=== PATIENT | female | born 1990 | race Caucasian/White ===

== ENCOUNTER 2016-07-21 10:26 | Emergency (ER) | payer BC ==
[2016-07-21 10:48] VITALS: BP 126/52
--- NOTE | 2016-07-21 11:41 | UC ---
General HPI - HPI Summary HPI Summary: Achy, tired, feels feverish for a couple days. Worried about influenza -- is 24 wks and did not get flu vaccine. Partner has been sicker than her this week. No cough or nasal congestion. - History of Current Complaint Chief Complaint: UCRespiratory Stated Complaint: CONGESTION/ACHY Time Seen by Provider: 07/21/16 11:26 Hx Obtained From: Patient Onset/Duration: Gradual Onset, Lasting Days Timing: Constant Onset Severity: Mild Current Severity: Mild - Allergy/Home Medications Allergies/Adverse Reactions: Allergies Allergy/AdvReac Type Severity Reaction Status Date / Time No Known Allergies Allergy Verified 07/21/16 10:47 Home Medications: Home Medications Mv & Min W/ Methylfol [ + Complete Multi 0.267 & 373 mg] 1 dose PO DAILY 07/21/16 [History Confirmed 07/21/16] PMH/Surg Hx/FS Hx/Imm Hx Previously Healthy: Yes - Surgical History Surgical History: Yes Surgery Procedure, Year, and Place: [facility] - Family History Known Family History: Negative: Blood Disorder - Social History Lives: With Family Alcohol Use: None Substance Use Type: None Smoking Status (MU): Never Smoked Tobacco Review of Systems Constitutional: Chills, Fatigue Skin: Negative Eyes: Negative ENT: Negative Respiratory: Negative Cardiovascular: Negative Gastrointestinal: Negative Genitourinary: Negative Motor: Negative Neurovascular: Negative Musculoskeletal: Negative Neurological: Negative Psychological: Negative All Other Systems Reviewed And Are Negative: Yes Physical Exam Triage Information Reviewed: Yes Appearance: Well-Appearing, No Pain Distress, Well-Nourished Vital Signs: Initial Vital Signs Temp 98.3 F 07/21/16 10:43 Pulse 85 07/21/16 10:43 Resp 16 07/21/16 10:43 BP 126/52 07/21/16 10:43 Pulse Ox 100 07/21/16 10:43 Vital Signs Reviewed: Yes Eye Exam: Normal Eyes: Positive: Conjunctiva Clear ENT Exam: Normal ENT: Positive: Normal ENT inspection, Hearing grossly normal, Pharynx normal, TMs normal. Negative: Tonsillar swelling, Tonsillar exudate Dental Exam: Normal Neck exam: Normal Neck: Positive: Supple, Nontender, No Lymphadenopathy Respiratory Exam: Normal Respiratory: Positive: Chest non-tender, Lungs clear, Normal breath sounds, No respiratory distress, No accessory muscle use Cardiovascular Exam: Normal Cardiovascular: Positive: RRR, No Murmur Musculoskeletal Exam: Normal Neurological Exam: Normal Psychological Exam: Normal Skin Exam: Normal Course/Dx - Differential Dx - Multi-Symptom Provider Diagnoses: viral syndrome Discharge - Discharge Plan Condition: Stable Disposition: HOME Patient Education Materials: Viral Syndrome (ED) Additional Instructions: Please follow up with your provider about scheduling a flu shot. Flu season usually continues through August or September, so there is still some benefit to getting it now.
== END 2016-07-21 11:49 | disposition home or self-care (01) ==
LOC: UCCORT 10:26
DX: O98.512 Other viral diseases complicating pregnancy, second trimester (principal); B34.9 Viral infection, unspecified; Z3A.24 24 weeks gestation of pregnancy
CPT/HCPCS: 87502; 99201; G0463

== ENCOUNTER 2018-06-08 08:37 | Emergency (ER) | payer BC ==
[2018-06-08 08:54] VITALS: BP 104/63
--- NOTE | 2018-06-08 08:58 | UC ---
Throat Pain/Nasal Vincent HPI - HPI Summary HPI Summary: 27-year-old female presents with onset of sore throat last evening. States pain woke her up during the night last night. Associated with some minor chills during the night as well as body aches. Denies fever, headache, ear pain , eye redness or drainage, nasal congestion, nasal drainage, dysphagia, cough, chest pain, shortness of breath, abdominal pain, nausea, or vomiting. Patient is currently breast-feeding. Reports her 3-year-old child was diagnosed with conjunctivitis last week. - History of Current Complaint Chief Complaint: UCGeneralIllness Stated Complaint: THROAT,EYE COMPLAINT Time Seen by Provider: 06/08/18 08:42 Hx Obtained From: Patient Pain Intensity: 5 - Allergies/Home Medications Allergies/Adverse Reactions: Allergies Allergy/AdvReac Type Severity Reaction Status Date / Time No Known Allergies Allergy Verified 06/08/18 08:49 Home Medications: Home Medications Acetaminophen [Tylenol Extra Strength] 1,000 mg PO ONCE 06/08/18 [History Confirmed 06/08/18] PMH/Surg Hx/FS Hx/Imm Hx Previously Healthy: Yes - Surgical History Surgical History: Yes Surgery Procedure, Year, and Place: [facility] (2011). C-sections x2 (2014, 2017) - Family History Known Family History: Positive: Non-Contributory - Social History Occupation: Employed Full-time Lives: With Family Alcohol Use: None Substance Use Type: None Smoking Status (MU): Never Smoked Tobacco Review of Systems All Other Systems Reviewed And Are Negative: Yes Constitutional: Positive: Chills. Negative: Fever Skin: Negative: Rash Eyes: Negative: Drainage, Eye Redness ENT: Positive: Sore Throat. Negative: Ear Ache, Nasal Discharge, Sinus Congestion, Sinus Pain/Tenderness Respiratory: Negative: Shortness Of Breath, Cough Cardiovascular: Negative: Palpitations, Chest Pain Gastrointestinal: Negative: Abdominal Pain, Vomiting, Nausea Is Patient Immunocompromised?: No Physical Exam - Summary Physical Exam Summary: GENERAL APPEARANCE: Well developed, well nourished, alert and cooperative, and appears to be in no acute distress. EYES: Conjunctiva clear. No drainage. EARS: External auditory canals and tympanic membranes clear, hearing grossly intact. NOSE: No nasal discharge. THROAT: Pharyngeal erythema with 2+ tonsils and exudate. Oral cavity normal. Teeth and gingiva in good general condition. NECK: Neck supple and non-tender. Mild anterior cervical lymphadenopathy. CARDIAC: Normal S1 and S2. No S3, S4 or murmurs. Rhythm is regular. There is no peripheral edema, cyanosis or pallor. Extremities are warm and well perfused. Capillary refill is less than 2 seconds. LUNGS: Clear to auscultation and percussion without rales, rhonchi, wheezing or diminished breath sounds. ABDOMEN: Positive bowel sounds. Soft, nondistended, nontender. No guarding or rebound. No masses or hepatosplenomegally. MUSKULOSKELETAL: ROM intact to all extremities. No joint erythema or tenderness. Normal muscular development. Normal gait. EXTREMITIES: No edema. Peripheral pulses intact. SKIN: Skin normal color, texture and turgor with no lesions or eruptions. Triage Information Reviewed: Yes Vital Signs: Initial Vital Signs Temp 97.9 F 06/08/18 08:49 Pulse 105 06/08/18 08:49 Resp 18 06/08/18 08:49 BP 104/63 06/08/18 08:49 Pulse Ox 99 06/08/18 08:49 Vital Signs Reviewed: Yes Diagnostics - Laboratory Diagnostic Studies Completed/Ordered: Rapid strep positive Throat Pain/Nasal Course/Dx - Course Course Of Treatment: 27-year-old female presents with onset of sore throat last evening. States pain woke her up during the night last night. Associated with some minor chills during the night as well as body aches. Denies fever, headache, ear pain, eye redness or drainage, nasal congestion, nasal drainage, dysphagia, cough, chest pain, shortness of breath, abdominal pain, nausea, or vomiting. Afebrile. VSS. Exam revealed pharyngeal erythema with 2+ tonsils, exudate, and anterior cervical lymphadenopathy. Rapid strep positive. Will treat with 10 day course of Pen VK 500 mg BID and symptomatic treatment. Warning symptoms reviewed. Verbalizes understanding and agrees with POC. - Differential Dx/Diagnosis Differential Diagnosis/HQI/PQRI: Mononucleosis, Pharyngitis, Tonsillitis, URI Provider Diagnosis: Strep pharyngitis Discharge - Sign-Out/Discharge Documenting (check all that apply): Patient Departure All imaging exams completed and their final reports reviewed: No Studies - Discharge Plan Condition: Stable Disposition: HOME Prescriptions: Penicillin VK 500 MG TAB(NF) [Penicillin VK 500 mg Tab] 500 mg PO BID #20 tab Patient Education Materials: Strep Throat (ED) Referrals: No Primary Care Phys,NOPCP [Primary Care Provider] - Additional Instructions: Your rapid strep test in the clinic today was positive. We will start you on an antibiotic to treat the infection. Start Penicillin VK 500 mg 1 tab twice a day for 10 days. Be sure to finish the entire course even if feeling better. After you have been on antibiotics for 3 days, throw out your toothbrush and replace with a new one to prevent reinfection. Drink plenty of fluids to avoid dehydration especially if you are running any fever. Use salt water gargles several times a day. Take over the counter acetaminophen (Tylenol) or ibuprofen (Advil, Motrin) according to directions as needed for pain or fever. You may also use Chloraseptic spray or Cepacol lonzenges according to directions which contain a numbing medication and can provide some temporary relief from your sore throat. Return here or follow up with your primary care provider if symptoms persist for more than 10 days or if you have any worsening of symptoms. Seek immediate medical attention in the emergency room if you have fever greater than 100.5 F despite taking acetaminophen or ibuprofen, are unable to swallow or develop drooling, are unable to open your mouth fully, are unable to eat or drink, have pain that is not relieved with over the counter pain medication, or have any difficulty breathing. - Billing Disposition and Condition Condition: STABLE Disposition: Home
== END 2018-06-08 09:17 | disposition home or self-care (01) ==
LOC: UCCORT 08:37
DX: J02.0 Streptococcal pharyngitis (principal); B95.0 Streptococcus, group A, as the cause of diseases classified elsewhere
CPT/HCPCS: 87651; 99212; G0463